=== PATIENT | female | born 1995 | race Caucasian/White ===

== ENCOUNTER 2019-04-09 21:40 | Emergency (ER) | payer OTHER ==
[~2019-04-09] VITALS: Ht 160 cm; Wt 99.8 kg
[2019-04-09 22:23] VITALS: Ht 160 cm; Wt 99.8 kg
[2019-04-09 23:51] VITALS: BP 127/76
== END 2019-04-09 23:51 | disposition home or self-care (01) ==
LOC: ED 21:40
DX: H66.92 Otitis media, unspecified, left ear (principal); F41.9 Anxiety disorder, unspecified